=== PATIENT | female | born 1985 | race Caucasian/White ===

== ENCOUNTER 2018-03-21 18:12 | Emergency (ER) | payer OTHER ==
[~2018-03-21] VITALS: Ht 157.5 cm; Wt 49.9 kg
--- NOTE | ~2018-03-21 | EKG ---
[address] [place] [address] ELECTROCARDIOGRAM REPORT Name: ABIODUN INMAN Room #: [facility]#: [id number] Admission: 03/21/18 Attend Phys: Discharge: 03/21/18 Date of : 83 Report #: [id number] THIS REPORT FOR: //name// [facility] ED Test Date: 2018-03-21 Test Time: 18:28:38 Pat Name: ABIODUN INMAN Department: Room: Gender: F Route Sales Person: RAVEN : 1985 Requested By: Jasper Yung Order Number: [id number] MD: Jose Nickerson Measurements Intervals [place] Rate: 72 P: 82 ID: [id number] QRS: 55 QRSD: 81 T: 46 QT: 374 QTc: 410 Interpretive Statements Sinus rhythm Borderline prolonged ID interval Probable left atrial enlargement RSR' in V1 or V2, probably normal variant No previous ECG available for comparison Electronically Signed On 03-22-2018 22:11:13 [employer] by Jose Nickerson [email or web address] <ELECTRONICALLY SIGNED> By: Jose Nickerson MD 03/22/18 2211 27 27 Jose Nickerson MD /SHEKHAR
[2018-03-21 18:47] LABS: ABSOLUTE NEUTROPHILS 3.8 thou/uL (1.4-8.2); BASOPHILS 0.2 % (0.0-2.0); EOSINOPHILS 10.4 % (0.0-3.0); HEMATOCRIT 42.6 % (37.0-47.0); HEMOGLOBIN 14.6 gm/dL (12.0-15.0); LYMPHOCYTES 25.8 % (24.0-44.0); MCH 31.2 pg (26.0-34.0); MCHC 34.3 g/dL (28.0-37.0); MONOCYTES 8.6 % (1.0-8.0); PLATELET COUNT 218 thou/uL (150-400); RBC 4.69 mil/uL (4.20-5.00); RDW 13.1 % (10.5-14.5); WBC 6.9 thou/uL (4.0-11.0)
[2018-03-21 18:50] LABS: ANION GAP 8 mmol/L (7-16); BUN 13 mg/dL (7-18); CALCIUM 9.5 mg/dL (8.5-10.1); CHLORIDE 100 mmol/L (98-107); CO2 28 mmol/L (21-32); CREATININE 0.6 mg/dL (0.6-1.0); GLUCOSE 120 mg/dL (74-106); POTASSIUM 3.2 mmol/L (3.5-5.1); SODIUM 136 mmol/L (136-145)
[2018-03-21 18:58] LABS: TROPONIN-I <0.06 ng/mL (<0.06)
[2018-03-21 20:17] LABS: URINE CLARITY CLEAR; URINE COLOR YELLOW
[2018-03-21 20:18] LABS: URINE BILIRUBIN NEGATIVE (Negative); URINE BLOOD NEGATIVE (Negative); URINE GLUCOSE-RANDOM* NEGATIVE (Negative); URINE KETONES NEGATIVE (Negative); URINE LEUKOCYTES-REFLEX NEGATIVE (Negative); URINE NITRITE-REFLEX NEGATIVE (Negative); URINE PROTEIN (DIPSTICK) NEGATIVE (Negative); URINE SPECIFIC GRAVITY < 1.005 (1.005-1.035); URINE UROBILINOGEN 0.2 E.U./dl (0.2-1.0)
[2018-03-21 20:22] LABS: AMP/METHAMP Negative (Negative); BARBITURATES Negative (Negative); BENZODIAZEPINES Negative (Negative); COCAINE Negative (Negative); METHADONE Negative (Negative); OPIATES Negative (Negative); PCP Negative (Negative)
[2018-03-21 21:38] VITALS: BP 107/67
== END 2018-03-21 21:45 | disposition home or self-care (01) ==
LOC: ER 18:12
PROVIDERS: Emergency Medicine
DX: R53.81 Other malaise (principal)